=== PATIENT | male | born 1960 | race Caucasian/White ===

== ENCOUNTER → 2019-12-13 | Outpatient (CLI) | payer MEDICAID, MEDICARE ==
--- NOTE | 2019-12-13 14:26 | REP ---
SACRUM AND COCCYX: Three views of the sacrum and coccyx performed. No fracture or dislocation is seen. There is mild narrowing and sclerosis of the sacroiliac joints. There appears to be mild degenerative change of lower lumbar spine. No other abnormalities are seen. IMPRESSION: Mild degenerative changes of the lower lumbar spine and sacroiliac joints. Electronically Signed by Daryn Gutierrez MD 12/13/2019 03:15 P
--- NOTE | 2019-12-13 15:28 | REP ---
MRI LUMBAR SPINE WITHOUT CONTRAST: HISTORY: Lumbar radiculopathy. Injury 6 weeks ago in a fall. TECHNIQUE: Sagittal and axial T1- and T2-weighted scans are acquired in the usual fashion with and without fat saturation. Sequences include spin echo, turbo spin-echo, and STIR imaging sequences. MRI FINDINGS: Lumbar vertebral body heights are preserved. No fracture or collapse is seen. The sagittal field of view includes the first four sacral segments and no evidence of fracture or displacement is seen. The tip of the conus medullaris is normal in position and appearance at L1. There is no evidence of spondylolysis or spondylolisthesis. No evidence of contusion or ligament disruption is seen. Axial and sagittal images at L1-L2 demonstrate minimal facet hypertrophy. No disc protrusion is seen. At L2-L3, there is mild ligamentum flavum and facet hypertrophy. Canal size is borderline. No disc protrusion or foraminal narrowing is seen. At L 3-L4, there is diffuse disc bulging. There is mild central canal stenosis due to diffuse disc bulging, ligamentum flavum and facet hypertrophy, and dorsal epidural fat along with developmentally somewhat short pedicles. Midline AP dimension of the thecal sac at the L3-4 is 11 mm. No nerve root compression is seen. At L4-L5, there is central canal stenosis due to diffuse disc bulging, ligamentum flavum and facet hypertrophy, developmentally somewhat short pedicles, and some intraspinal epidural fat. Midline AP dimension of the thecal sac at L4-5 is 7.4 mm. There is mild bilateral neural foraminal encroachment due to facet hypertrophy and disc bulge. At L5-S1, there is minimal diffuse disc bulging. This effaces the ventral epidural fat but does not contact the thecal sac. There is considerable epidural fat in the canal at L5-S1. Facet hypertrophy is present. No significant foraminal narrowing is seen. IMPRESSION: Degenerative spondylosis changes more pronounced than on the 2004 prior study. There is central canal stenosis at L4-5 and to a lesser extent at L3-4. Mild bilateral L4-5 neural foraminal narrowing. Electronically Signed by Beau Sullivan MD 12/13/2019 04:39 P
== END ==
LOC: M RAD 13:37
PROVIDERS: ATTEND Family Medicine
DX: M54.16 Radiculopathy, lumbar region (principal); M48.061 Spinal stenosis, lumbar region without neurogenic claudication

== ENCOUNTER → 2020-09-18 | Outpatient (REF) | payer MEDICARE ==
[2020-09-18 17:13] LABS: BASO # 0.1 10^3/uL (0.0-0.2); EOS # 0.2 10^3/uL (0.0-0.5); EOS % 2.5 % (0.0-3.0); HEMOGLOBIN 15.6 g/dl (13.5-17.5); LYMPH # 2.2 10^3/uL (1.5-5.0); LYMPH % 27.1 % (24.0-44.0); MEAN CORPUSCULAR HEMOGLOBIN 36.4 pg (27.0-33.0); MEAN CORPUSCULAR HGB CONC 34.7 g/dl (32.0-36.5); MEAN CORPUSCULAR VOLUME 104.9 fl (80.0-96.0); MONO # 0.7 10^3/uL (0.0-0.8); MONO % 8.1 % (0.0-5.0); NEUTROPHILS # 4.9 10^3/uL (1.5-8.5); NEUTROPHILS % 61.1 % (36.0-66.0); PLATELET COUNT, AUTOMATED 282 10^3/uL (150-450); RED BLOOD COUNT 4.29 10^6/uL (4.30-6.10)
[2020-09-18 17:16] LABS: ALBUMIN 4.1 GM/DL (3.2-5.2); ALT/SGPT 148 U/L (12-78); BILIRUBIN,TOTAL 0.5 MG/DL (0.2-1.0); BLOOD UREA NITROGEN 13 MG/DL (7-18); CALCIUM LEVEL 9.2 MG/DL (8.8-10.2); CARBON DIOXIDE LEVEL 27 MEQ/L (21-32); CHLORIDE LEVEL 105 MEQ/L (98-107); CHOLESTEROL LEVEL 283 MG/DL (<200); CHOLESTEROL RISK RATIO 3.329 (<5); CREATININE FOR GFR 0.92 MG/DL (0.70-1.30); GLOMERULAR FILTRATION RATE > 60.0 (>49); GLUCOSE, FASTING 92 MG/DL (70-100); HDL CHOLESTEROL 85 MG/DL (>40); LDL CHOLESTEROL 171 MG/DL (<100); NON-HDL-C 198 MG/DL; POTASSIUM SERUM 4.2 MEQ/L (3.5-5.1); SODIUM LEVEL 140 MEQ/L (136-145); TOTAL PROTEIN 7.7 GM/DL (6.4-8.2); TRIGLYCERIDES LEVEL 136 MG/DL (<150)
== END ==
LOC: M LAB REF 16:42
PROVIDERS: ATTEND Physician Assistant
DX: Z13.220 Encounter for screening for lipoid disorders (principal); Z13.228 Encounter for screening for other metabolic disorders; M54.17 Radiculopathy, lumbosacral region

== ENCOUNTER → 2020-12-28 | Outpatient (REF) | payer MEDICARE ==
[2020-12-28 18:26] LABS: APPEARANCE, URINE CLEAR (CLEAR); BACTERIA, URINE AUTO NEGATIVE (NEGATIVE); BILIRUBIN, URINE AUTO NEGATIVE (NEGATIVE); BLOOD, URINE BLOOD NEGATIVE (NEGATIVE); COLOR, URINE STRAW (YELLOW); GLUCOSE, URINE (UA) AUTO NEGATIVE (NEGATIVE); KETONE, URINE AUTO NEGATIVE (NEGATIVE); LEUKOCYTE ESTERASE, URINE AUTO NEGATIVE (NEGATIVE); MUCUS, URINE SMALL (NEGATIVE); NITRITE, URINE AUTO NEGATIVE (NEGATIVE); PROTEIN, URINE AUTO NEGATIVE (NEGATIVE); RBC, URINE AUTO 0 /HPF (0-3); SPECIFIC GRAVITY URINE AUTO 1.003 (1.002-1.035); SQUAMOUS EPITHELIAL CELL UR AU 0 /HPF (0-6); UROBILINOGEN, URINE AUTO 0.2 mg/dL (0.0-2.0); WBC, URINE AUTO 0 /HPF (0-3)
== END ==
LOC: M LAB REF 16:36
PROVIDERS: ATTEND Physician Assistant
DX: R39.15 Urgency of urination (principal)